=== PATIENT | female | born 1985 | race Caucasian/White ===

== ENCOUNTER → 2017-07-03 18:43 | Outpatient (CLI) | payer OTHER, SELFPAY ==
[2017-07-03 20:45] LABS: Group B Strep DNA By PCR POSITIVE (Negative); Probe Check PASS
== END ==
PROVIDERS: Visit Provider Obstetrics & Gynecology
DX: Z36.85 Encounter for antenatal screening for Streptococcus B (principal)
CPT/HCPCS: 87653

== ENCOUNTER 2017-07-21 08:15 | Inpatient (IN) | payer OTHER, SELFPAY ==
[2017-07-21 07:40] VITALS: BMI 32.1
[2017-07-21 08:08] LABS: ROM Internal Control Test YES-OK TO RESULT pt. (Internal QC)
[2017-07-21 08:09] LABS: ROM Patient Test POSITIVE (Negative)
[2017-07-21 08:59] LABS: Hematocrit 38.3 % (37-47); Mean Corp Hgb Conc 33.9 g/gl (32-36); Mean Corpuscular Hgb 31.1 pg (27.0-32.0); Mean Corpuscular Volume 91.6 fL (81-99); Mean Platelet Vol. 10.2 fl (6.2-12.0); Platelet Count 218 K/mm3 (150-450); RBC Distribution Width CV 13.1 % (11.6-14.6); Red Blood Count 4.18 M/mm3 (4.2-5.4); White Blood Count 9.3 K/mm3 (4.4-11.0)
[2017-07-21] MEDS: Lactated Ringers 1,000 ML 50 ML IV ×4 (09:00→22:10)
[2017-07-21 09:01] LABS: Scan Indicated on CBC? Y/N NO
[2017-07-21] MEDS: Oxytocin 30 units/NS 500 ml 30 UNITS/500 ML IV.SOLN IV (09:58)
[2017-07-21] MEDS: Nalbuphine 10 MG/ML Ampul IV ×2 (12:36→13:09)
--- NOTE | 2017-07-21 16:50 | PCM.PN.BLA ---
Progress Note LABOR PROGRESS NOTE No complaints. Comfortable with epidural. AVSS GEN - NAD, AAO x 3 FHR 140, moderate variability, no accelerations, no decelerations TOCO 5/10 min, MVU 225 SVE 3/75/-1, anterior per last RN exam 2 hours ago. Repeat exam deferred. Pitocin at 7mu/min A/P: 31yo G1 @ 39 2/7wga with SROM in latent labor, pitocin augmentation, Cat I FHR -GBS positive: PCN -Latent labor and ruptured membranes, will repeat exam in approximately 2 hours unless otherwise indicated. - and maternal statuses reassuring -Continue pitocin as tolerated by mother and fetus
--- NOTE | 2017-07-21 17:40 | PCM.PN.BLA ---
Progress Note PROGRESS NOTE FHR 140, moderate variability with series of variable decelerations, TOCO 5/10 min. SVE 4.5/90/0 with ROP, cervix anterior. Patient repositioned. Will continue pitocin as tolerated.
--- NOTE | 2017-07-21 22:03 | PCM.PN.BLA ---
Progress Note LABOR PROGRESS NOTE No complaints. AVSS, Tm 99.6 GEN - NAD< AAO x 3 SVE 8/90/0 per my exam, ROP. TOCO 5/10 min FHR 170, moderate variability, + late deceleration. A/P: 31yo G1 @ 39 2/7wga in active labor, Cat II FHR -Recurrent late decelerations, now with tachycardia, no clinical infection -Pitocin discontinued, bolus administered, Oxygen supplementation administered -Will continue to monitor further without pitocin -If decelerations persist, plan for section
[2017-07-21] MEDS: Ondansetron 4 MG/2 ML Vial IV (22:38)
--- NOTE | 2017-07-21 23:15 | PCM.PN.BLA ---
Progress Note FHR tracing reviewed for last hour, Cat II with presence of late decelerations <50% of contractions and moderate variability maintained. TOCO 4-5/10 min. Discussed with patient and findings. No evidence of acidemia at this time, however, I do not recommend pitocin at this time to avoid exacerbation decelerations. Recommend continue in labor with expectant management, will consider resuming pitocin if strip Cat I in future. Otherwise, will plan for section if no further cervical change at 2am. Discussed maternal risks including pain, bleeding, possible hemorrhage, possible blood transfusion, bowel injury, bladder injury, VTE, infection. Patient and given opportunity to ask questions. Asked about risk for GBS infection, reviewed low risk for GBS given PCN ppx. Questions answered to their satisfaction.
[2017-07-22] VITALS (26 sets, daily range): BP systolic 89–125; BP diastolic 49–75; PULSE 72–103; RESP 12–20; TEMP 36.3–37.8; O2SAT 94–100
--- NOTE | 2017-07-22 00:15 | PCM.PN.BLA ---
Progress Note Tm 100.0, FHR with baseline 165 bpm with occasional late deceleration. Moderate variability maintained. Given prolonged rupture of membranes, increased temperature and tachycardia will given IV Gentamicin for possible subclinical chorioamnionitis. Gentamicin ordered. Continue in labor.
--- NOTE | 2017-07-22 00:58 | PN_ITS ---
Progress Note FHR tracing reviewed for last hour, Cat II with presence of late decelerations < 50% of contractions and moderate variability maintained. TOCO 4-5/10 min. Discussed with patient and findings. No evidence of acidemia at this time, however, I do not recommend pitocin at this time to avoid exacerbation decelerations. Recommend continue in labor with expectant management, will consider resuming pitocin if strip Cat I in future. Otherwise, will plan for section if no further cervical change at 2am. Discussed maternal risks including pain, bleeding, possible hemorrhage, possible blood transfusion, bowel injury, bladder injury, VTE, infection. Patient and given opportunity to ask questions. Asked about risk for GBS infection , reviewed low risk for GBS given PCN ppx. Questions answered to their satisfaction.
--- NOTE | 2017-07-22 03:11 | PCM.PN.BLA ---
Progress Note LABOR PROGRESS NOTE Patient without complaints. Tm/c 100.0, VSS FHR 165, moderate variablity, + variable decelerations, TOCO 4/10 min SVE 8,5/90/0 A/P: 31yo G1 @ 39 3/7wga with arrest of dilation, Cat II FHR -Will proceed with section as planned. Reviewed with patient and how performed. Questions answered to their satisfaction. -Ancef for ppx
[2017-07-22] MEDS: Acetaminophen 325 MG Tablet PO (03:15)
[2017-07-22] MEDS: Sodium Citrate/Citric Acid 30 ML UDC PO (03:27)
[2017-07-22] MEDS: Cefazolin 2 GM in 0.9% Normal Saline 100 ML IV (03:40)
[2017-07-22] MEDS: Oxytocin 30 units/NS 500 ml 30 UNITS/500 ML IV.SOLN 167 UNITS IV (03:56)
[2017-07-22] MEDS: Ketorolac 30 MG/ML Syringe IV ×4 (04:00→23:16)
--- NOTE | 2017-07-22 04:37 | PCM.IMED.CSR ---
- Problem List (1) delivery delivered Status: Acute (2) 39 weeks gestation of Status: Acute X-Aboitji-Ycqhftxmv PostOp Date of Procedure: 07/22/17 Primary Surgeon/Physician: Licha Contreras, fixed route bus operator: Bruce Moctezuma Pre-op Diagnosis: Sec. Arrest of Dilitation Post-Op Diagnosis: Sec. Arrest of Dilitation Surgery/Procedure Performed: Primary low transverse Section Description of Surgical Findings:: Normal tubes MALE INFANT, 3885g Estimated Blood Loss: 500 mL Specimens Removed: placenta Drain: [place] to straight drain Type of Anesthesia: Epidural - Admit VTE Documentation VTE Present on Admission: No VTE Mechan Device Prophylaxis: SCD's VTE Pharm Prophylaxis ordered?: No
--- NOTE | 2017-07-22 04:40 | OP.PN_ITS ---
- Problem List (1) delivery delivered Status: Acute (2) 39 weeks gestation of Status: Acute M-Phssghc-Qkxsonpce PostOp Date of Procedure: 07/22/17 Primary Surgeon/Physician: Licha Contreras, head of history: Bruce Moctezuma Pre-op Diagnosis: Sec. Arrest of Dilitation Post-Op Diagnosis: Sec. Arrest of Dilitation Surgery/Procedure Performed: Primary low transverse Section Description of Surgical Findings:: Normal tubes MALE INFANT, 3885g Estimated Blood Loss: 500 mL Specimens Removed: placenta Drain: [place] to straight drain Type of Anesthesia: Epidural - Admit VTE Documentation VTE Present on Admission: No VTE Mechan Device Prophylaxis: SCD's VTE Pharm Prophylaxis ordered?: No
--- NOTE | 2017-07-22 04:40 | PCM.OB.CSR ---
- Problem List (1) delivery delivered Status: Acute (2) 39 weeks gestation of Status: Acute Delivery Classification: TONI Final NENO: 07/26/17 Gestational age: 39 Weeks and 3 Days [place] doctor who attended delivery (if requested by OB): Rona Christianson Indications: 31yo G1 admitted with SROM. She had pitocin augmentation and progressed from 1cm to 8.5cm. Pitocin was discontinued due to recurrent late decelerations with some improvement. She continued to labor spontaneously with improved Cat II FHR however no further cervical progression over 6 hours. She was given antibiotics prophylaxis for GBS and subsequently received Gentamicin x 1 shortly before delivery for increasing maternal temperature curve, maternal and tachycardia. Indications for : Sec. Arrest of Dilitation Description of Procedure: The patient was taken to the operating room and spinal analgesia was administered. She is placed in a dorsal supine position with left lateral tilt. The perineum and abdomen were prepped and draped in sterile fashion. And the spinal was found to be adequate. A Pfannenstiel incision was made using a scalpel and brought down to incise the subcutaneous tissue and rectus fascia at the midline. Subcutaneous tissue was bluntly dissected off the fascia laterally. The fascial incision was dissected laterally and cephalad using curved Contreras scissors. The superior leaflet of the rectus fascia was grasped using Monik clamps and bluntly dissected and sharply dissected from the underlying rectus muscle. In a similar fashion the inferior rectus fascia was dissected from the underlying muscle. The rectus muscles were bluntly at the midline. The peritoneum was identified and entered [sharply]. The bladder blade was placed into the abdomen and the vesicouterine peritoneal fold identified. The fold was incised and a bladder flap created. Bladder blade was then repositioned to the abdomen. A low transverse hysterotomy was made using the [Metzenbaum scissors] to level of the membranes. The hysterotomy was extended bluntly cephalad and caudad. The membranes were then ruptured revealing clear fluid. The head was elevated and brought to the level of the hysterotomy and the infant delivered revealing vigorous [male] . The cord was doubly clamped and cut after 30 seconds. The was passed to awaiting [nursery personnel]. The placenta was [expressed] from the uterus and appeared intact on inspection. The uterus was cleared of debris. The hysterotomy was then repaired using 0 Vicryl running lock suture. A second imbricating layer was also placed for additional hemostasis. The bladder blade was removed. The anterior cul-de-sac was cleared of debris. The peritoneum and rectus muscles were reapproximated using 2-0 Vicryl running suture. The rectus fascia was closed using 0 Vicryl running suture. The subcutaneous tissue was sponge irrigated and small capillary bleeding controlled using the Bovie device. The subcutaneous tissue was reapproximated using 2-0 Vicryl. The skin was closed using 4-0 Monocryl subcuticularly by the GIRL FRIDAY under my supervision. This was followed by Tad and a Mepilex occlusive dressing was placed over the incision. The fundus was firm. The patient was then transferred to the recovery room without complication. Sponge, instrument, and needle counts were correct ?2. MALE 3885g Amniotic Membrane Rupture Type: Artificial Amniotic Fluid Description: Moderate meconium Placenta Disposition: [facility] Specimen(s) sent to pathology: placenta Drain: [place] to straight drain Fluids Replaced: 1700 mL Cord Entanglement: Around neck x 1, loose Nuchal Cord Compression: Without compression Cord Vessel Description: 3 Vessels Esitmated Blood Loss (ml): 500 Infant Gender: Male (1 minute): 8 (5 minute): 9 Delayed cord clamping: No Pre-op Antibiotic Given: Ancef 2 grams IV x1 Pt instructed on risks of surgery: Bleeding, Anesthesia Risks, Infection, Injury to surrounding structure(s) including bowel and bladder Complications: None
--- NOTE | 2017-07-22 04:50 | OP.PCM_ITS ---
- Problem List (1) delivery delivered Status: Acute (2) 39 weeks gestation of Status: Acute Delivery Classification: TONI Final NENO: 07/26/17 Gestational age: 39 Weeks and 3 Days [place] doctor who attended delivery (if requested by OB): Rona Christianson Indications: 31yo G1 admitted with SROM. She had pitocin augmentation and progressed from 1cm to 8.5cm. Pitocin was discontinued due to recurrent late decelerations with some improvement. She continued to labor spontaneously with improved Cat II FHR however no further cervical progression over 6 hours. She was given antibiotics prophylaxis for GBS and subsequently received Gentamicin x 1 shortly before delivery for increasing maternal temperature curve, maternal and tachycardia. Indications for : Sec. Arrest of Dilitation Description of Procedure: The patient was taken to the operating room and spinal analgesia was administered. She is placed in a dorsal supine position with left lateral tilt. The perineum and abdomen were prepped and draped in sterile fashion. And the spinal was found to be adequate. A Pfannenstiel incision was made using a scalpel and brought down to incise the subcutaneous tissue and rectus fascia at the midline. Subcutaneous tissue was bluntly dissected off the fascia laterally. The fascial incision was dissected laterally and cephalad using curved Contreras scissors. The superior leaflet of the rectus fascia was grasped using Monik clamps and bluntly dissected and sharply dissected from the underlying rectus muscle. In a similar fashion the inferior rectus fascia was dissected from the underlying muscle. The rectus muscles were bluntly at the midline. The peritoneum was identified and entered [sharply]. The bladder blade was placed into the abdomen and the vesicouterine peritoneal fold identified. The fold was incised and a bladder flap created. Bladder blade was then repositioned to the abdomen. A low transverse hysterotomy was made using the [Metzenbaum scissors] to level of the membranes. The hysterotomy was extended bluntly cephalad and caudad. The membranes were then ruptured revealing clear fluid. The head was elevated and brought to the level of the hysterotomy and the infant delivered revealing vigorous [ male] infant. The cord was doubly clamped and cut after 30 seconds. The was passed to awaiting [nursery personnel]. The placenta was [expressed ] from the uterus and appeared intact on inspection. The uterus was cleared of debris. The hysterotomy was then repaired using 0 Vicryl running lock suture. A second imbricating layer was also placed for additional hemostasis. The bladder blade was removed. The anterior cul-de-sac was cleared of debris. The peritoneum and rectus muscles were reapproximated using 2-0 Vicryl running suture. The rectus fascia was closed using 0 Vicryl running suture. The subcutaneous tissue was sponge irrigated and small capillary bleeding controlled using the Bovie device. The subcutaneous tissue was reapproximated using 2-0 Vicryl. The skin was closed using 4-0 Monocryl subcuticularly by the PORT TRAFFIC MANAGER under my supervision. This was followed by Tad and a Mepilex occlusive dressing was placed over the incision. The fundus was firm. The patient was then transferred to the recovery room without complication. Sponge, instrument, and needle counts were correct ?2. MALE INFANT 3885g Amniotic Membrane Rupture Type: Artificial Amniotic Fluid Description: Moderate meconium Placenta Disposition: [facility] Specimen(s) sent to pathology: placenta Drain: [place] to straight drain Fluids Replaced: 1700 mL Cord Entanglement: Around neck x 1, loose Nuchal Cord Compression: Without compression Cord Vessel Description: 3 Vessels Esitmated Blood Loss (ml): 500 Gender: Male (1 minute): 8 (5 minute): 9 Delayed cord clamping: No Pre-op Antibiotic Given: Ancef 2 grams IV x1 Pt instructed on risks of surgery: Bleeding, Anesthesia Risks, Infection, Injury to surrounding structure(s) including bowel and bladder Complications: None
--- NOTE | 2017-07-22 05:23 | PCM.DC.SUM ---
Discharge Date and Diagnosis Date of Admission: 07/21/17 Date of Discharge: 07/25/17 - Primary Discharge Diagnosis Active and Suspected Problems delivery delivered (Acute) 39 weeks gestation of (Acute) Hospital Course and Treatment Consultations 07/21/17 08:41 Consult: Anesthesia Routine Comment: Reason For Exam: LABOR Operations: - - section Summary of Care Provided: The patient is a 31 year old F 1 admitted with SROM in labor. She underwent section at 39 3/7wga for arrest of dilation, fetus occiput posterior. Her procedure was uncomplicated. Her postoperative course was unremarkable as she was discharged to home on postop day#3. Home Medications: Medications to take at Discharge Calcium Carbonate [Tums] 200 mg PO PRN PRN 07/21/17 Doxylamine Succinate [Unisom Sleep Aid] 25 mg PO PRN PRN 07/21/17 Vits [Prenatabs FA] 1 tablet PO DAILY 07/21/17 Docusate Sodium [Colace] 100 mg PO BID PRN PRN #60 cap 07/22/17 Ibuprofen 800 mg PO TID PRN #30 tab 07/22/17 Oxycodone [Oxyir] 1 - 2 tab PO Q4H PRN PRN 3 Days #28 tablet 07/22/17 Following Prescrptions Were Given to Patient: Oxycodone [Oxyir] 1 - 2 tab PO Q4H PRN PRN 3 Days #28 tablet PRN Reason: Pain Docusate Sodium [Colace] 100 mg PO BID PRN PRN #60 cap PRN Reason: Constipation Ibuprofen 800 mg PO TID PRN #30 tab PRN Reason: Pain Other Amb Orders: Electric breast pump Location: None Selected Primary Care Physician: Care Physician,No Primary [Primary Care Provider] - Meaningful Use Info Meaningful Use Diagnoses (Choose all that apply): None applicable
--- NOTE | 2017-07-22 05:27 | PLAC_PTH ---
PATIENT: WILL MCCLAIN LOC: [facility] U#:[id number] AGE/SX: 31/F ROOM: WP008 RE07/21/[address]: Dr. Licha Nogueira MD : 1985 BED: 1 DIS: 07/25/2017 SPEC #: [id number] RECD: 07/22/17 06:23 STATUS: JOSE REAngy #: [id number] IGNACIA: 07/22/17 05:[address]: Licha Salomon DEPT: SURGICAL PATHOLOGY RECD BY: Mary Jaramillo ENTERED: 07/23/17 09:12 SP TYPE: PLACENTA OTHR DR: No Primary Care Phys Tissues: Placenta, NOS Procedures: Surgery Specimen Level V HEADER OPERATION: Primary section PRE-OP DIAGNOSIS: Prolonged rupture of membranes, arrest of dilation TISSUE SUBMITTED: Placenta MICROSCOPIC DIAGNOSIS Placenta: Placental disc - third trimester placenta (542 gm). Mild acute vasculitis of subamniotic blood vessels. Membranes ? acute chorioamnionitis. Umbilical cord - three blood vessels and moderate acute funisitis. SJ:paolo 07/24/17 MICROSCOPIC DESCRIPTION Slides are reviewed. GROSS DESCRIPTION SPECIMEN: PLACENTA / CLINICAL INFORMATION: A. Weight: 3.598 kg B. Gestational Age: 39 weeks C. Sex: Male PLACENTAL WEIGHT (POST FIXATION): 542 gm PLACENTAL DIMENSIONS: 17 x 16 x 2.5 cm PLACENTAL SHAPE: Usual ovoid PLACENTAL WEIGHT FOR GESTATIONAL AGE: Within 10-99th percentile MEMBRANES - Present A. Insertion: Marginal B. Site of rupture from edge: At edge of placental disc C. Color of membrane: Mtz-morataya D. Abnormalities: None UMBILICAL CORD - Present A. Color: Mtz-morataya B. Insertion: Slightly eccentric C. Length: 57 cm D. Diameter: 1.2 cm E. Number of vessels: Three F. Abnormalities: None PLACENTAL DISC - Present A. Color of surface: Mtz-morataya B. surface abnormalities: None C. Maternal cotyledons: Intact with minimal tears D. Attached retro placental clot: No clot E. Cut surface: Dark red and spongy F. Lesions: None G. Separate clot: Absent SECTIONS SUBMITTED: 1. Membrane roll and umbilical cord ( end notched) 2. Placental disc, and maternal surfaces 3. Placental disc, and maternal surfaces 4. Placental disc, and maternal surfaces AM:paolo 07/23/17 TC:2 CPT: 84927
--- NOTE | 2017-07-22 05:28 | PCM.DCCSEC ---
Discharge Diet: No Restrictions Discharge Activity: Return to Normal Activity, May not drive while taking narcotic pain medications., May Shower May resume sexual activity in: 6 weeks Lifting Restrictions: 10 lb Additional Activity Instructions:: You may return to work/school in 6-8 weeks. Call your doctor if your incision/area has: Continuous Slow Oozing, Sudden Increased Bleeding, Increased Pain/ Swelling, Increased Redness, Foul Smelling Discharge Call your doctor if you observe: Fever of 101 or Higher, Inability to urinate, Inability to have a bowel movement, Using more than one pad per hour, Shortness of breath, Chest pain, Calf discomfort, Uncontrolled pain Suture Line Care: Avoid Pulling/Pushing Cleanse incision/area with: Soap & Water Additional Instructions: If you experience any of the following, contact your healthcare provider. Bleeding that soaks a pad every hour for 2 hours Fever 100.4 or higher Unrelieved incision or abdominal pain Swelling, redness, discharge or bleeding from your incision or episiotomy site Your incision begins to separate Problems urinating (including inability to urinate or burning while urinating). Visual changes Severe headache Flu-like symptoms Pain or redness in one of both of your breasts Pain, warmth, tenderness or swelling in your legs, especially the calf area Frequent nausea and vomiting Symptoms of depression or anxiety If you experience any of the following, call 911 or go to the nearest Emergency Room. Chest pain Problems breathing Seizure activity Partial or complete paralysis of a body part, slurred speech, weakness or drooping of the face, or a sudden inability to walk or hold your balance Allergies/Adverse Reactions: Allergies No Known Allergies Allergy (Verified 07/21/17 07:40) Medications to take at Discharge Calcium Carbonate [Tums] 200 mg PO PRN PRN 07/21/17 Doxylamine Succinate [Unisom Sleep Aid] 25 mg PO PRN PRN 07/21/17 Vits [Prenatabs FA] 1 tablet PO DAILY 07/21/17 Docusate Sodium [Colace] 100 mg PO BID PRN PRN #60 cap 07/22/17 Ibuprofen 800 mg PO TID PRN #30 tab 07/22/17 Oxycodone [Oxyir] 1 - 2 tab PO Q4H PRN PRN 3 Days #28 tablet 07/22/17 The following prescriptions were given: Oxycodone [Oxyir] 1 - 2 tab PO Q4H PRN PRN 3 Days #28 tablet PRN Reason: Pain Docusate Sodium [Colace] 100 mg PO BID PRN PRN #60 cap PRN Reason: Constipation Ibuprofen 800 mg PO TID PRN #30 tab PRN Reason: Pain Orders to be completed after discharge: Electric breast pump Location: None Selected Follow-Up: Call to make an appointment with your doctor for an incision check in 1-2 weeks. You will also need a 6 week post- follow up appointment. Please Follow Up With: Roseann Waldrop MD When: 1-2 weeks and 6 weeks Primary Care Physician: Care Physician,No Primary [Primary Care Provider] -
--- NOTE | 2017-07-22 05:31 | DCINST_ITS ---
Discharge Diet: No Restrictions Discharge Activity: Return to Normal Activity, May not drive while taking narcotic pain medications., May Shower May resume sexual activity in: 6 weeks Lifting Restrictions: 10 lb Additional Activity Instructions:: You may return to work/school in 6-8 weeks. Call your doctor if your incision/area has: Continuous Slow Oozing, Sudden Increased Bleeding, Increased Pain/ Swelling, Increased Redness, Foul Smelling Discharge Call your doctor if you observe: Fever of 101 or Higher, Inability to urinate, Inability to have a bowel movement, Using more than one pad per hour, Shortness of breath, Chest pain, Calf discomfort, Uncontrolled pain Suture Line Care: Avoid Pulling/Pushing Cleanse incision/area with: Soap & Water Additional Instructions: If you experience any of the following, contact your healthcare provider. * Bleeding that soaks a pad every hour for 2 hours * Fever 100.4 or higher * Unrelieved incision or abdominal pain * Swelling, redness, discharge or bleeding from your incision or episiotomy site * Your incision begins to separate * Problems urinating (including inability to urinate or burning while urinating) . * Visual changes * Severe headache * Flu-like symptoms * Pain or redness in one of both of your breasts * Pain, warmth, tenderness or swelling in your legs, especially the calf area * Frequent nausea and vomiting * Symptoms of depression or anxiety If you experience any of the following, call 911 or go to the nearest Emergency Room. * Chest pain * Problems breathing * Seizure activity * Partial or complete paralysis of a body part, slurred speech, weakness or drooping of the face, or a sudden inability to walk or hold your balance Allergies/Adverse Reactions: Allergies No Known Allergies Allergy (Verified 07/21/17 07:40) Medications to take at Discharge Calcium Carbonate [Tums] 200 mg PO PRN PRN 07/21/17 Doxylamine Succinate [Unisom Sleep Aid] 25 mg PO PRN PRN 07/21/17 Vits [Prenatabs FA] 1 tablet PO DAILY 07/21/17 Docusate Sodium [Colace] 100 mg PO BID PRN PRN #60 cap 07/22/17 Ibuprofen 800 mg PO TID PRN #30 tab 07/22/17 Oxycodone [Oxyir] 1 - 2 tab PO Q4H PRN PRN 3 Days #28 tablet 07/22/17 The following prescriptions were given: Oxycodone [Oxyir] 1 - 2 tab PO Q4H PRN PRN 3 Days #28 tablet PRN Reason: Pain Docusate Sodium [Colace] 100 mg PO BID PRN PRN #60 cap PRN Reason: Constipation Ibuprofen 800 mg PO TID PRN #30 tab PRN Reason: Pain Orders to be completed after discharge: Electric breast pump Location: None Selected Follow-Up: Call to make an appointment with your doctor for an incision check in 1-2 weeks. You will also need a 6 week post- follow up appointment. Please Follow Up With: Roseann Waldrop MD When: 1-2 weeks and 6 weeks Primary Care Physician: Care Physician,No Primary [Primary Care Provider] -
[2017-07-22] MEDS: Lactated Ringers 1,000 ML 100 ML IV ×2 (08:02→18:17)
[2017-07-22] MEDS: Prenatal Vits Tablet 1 TABLET PO (10:09)
--- NOTE | 2017-07-22 14:44 | NURSING ---
Pt's pulse ox remains good on room air while awake - drops to 90-92% at intervals while resting. O2 applied per NC while resting.
--- NOTE | 2017-07-22 18:30 | NURSING ---
Znia-care completed. Pt. up out of bed without much assist, ambulated around room, then to rocking chair. to arms, will attempt to feed.
[2017-07-23] VITALS: PULSE 70; RESP 15; RESP 17; TEMP 37.2; O2SAT 95
[2017-07-23 02:00] VITALS: PULSE 78; RESP 17; O2SAT 97
[2017-07-23 04:00] VITALS: BP 112/70; PULSE 93; RESP 15
[2017-07-23] MEDS: Ibuprofen 600 MG Tablet PO ×3 (05:52→18:46)
[2017-07-23 06:08] LABS: Hemoglobin 11.6 g/dl (12.0-15.0); Mean Corp Hgb Conc 33.1 g/gl (32-36); Mean Corpuscular Hgb 30.9 pg (27.0-32.0); Mean Corpuscular Volume 93.3 fL (81-99); Mean Platelet Vol. 9.4 fl (6.2-12.0); Platelet Count 182 K/mm3 (150-450); RBC Distribution Width CV 13.5 % (11.6-14.6); RBC Distribution Width SD 44.1 fl (35.1-43.9); Red Blood Count 3.75 M/mm3 (4.2-5.4); White Blood Count 16.5 K/mm3 (4.4-11.0)
[2017-07-23 06:17] LABS: Scan Indicated on CBC? Y/N NO
[2017-07-23 07:30] VITALS: BP 116/59; PULSE 78; RESP 16; TEMP 36.1; O2SAT 98
[2017-07-23] MEDS: Senna/Docusate Sodium 1 Tablet PO (08:07)
--- NOTE | 2017-07-23 08:10 | PCM.PN.OB ---
Patient Problems: Active and Suspected Problems delivery delivered (Acute) 39 weeks gestation of (Acute) Subjective: Pain is minimal. She has been out of bed, passing flatus. Voided without significant difficulty. She is nursing her . No complaints today. Objective: AVSS - Physical Exam General: Alert, Oriented x3, Cooperative, No apparent distress HEENT: Atraumatic, Normocephalic Lungs: Clear to auscultation, Normal air movement Cardiovascular: Regular rate, Regular Rhythm, Normal S1, Normal S2 Abdomen: Soft, Non Tender, Non-Distended, Hypoactive Bowel Sounds, - - Fundus firm and nontender, lochia scant, incisional dressing c/d/i Extremities: No edema, No Calf Tenderness Neurological: Neuro grossly intact Psych/Mental Status: Normal Affect, Appropriate, Alert and oriented to time, place, person, mood and affect Vital Signs Temp Pulse Resp BP Pulse Ox 97.0 F L 78 16 116/59 L 98 07/23/17 07:30 07/23/17 07:30 07/23/17 07:30 07/23/17 07:30 07/23/17 07:30 Oxygen Flow Rate (L/min) 2 Oxygen Delivery Method Room Air Weight: 90.2 kg Body Mass Index (BMI) 32.1 Intake and Output for Last 24 Hours 07/21/17 07/22/17 07/23/17 22:59 23:59 23:59 Intake Total 1600 / 1600 Output Total 1950 / 1950 Balance -350 / -350 Laboratory Tests Past 24 Hrs 07/23/17 05:50 WBC 16.5 H RBC 3.75 L Hgb 11.6 L Hct 35.0 L MCV 93.3 MCH 30.9 MCHC 33.1 RDW 13.5 RDW Differential 44.1 H Plt Count 182 MPV 9.4 Assessment/Plan Active and Suspected Problems delivery delivered (Acute) 39 weeks gestation of (Acute) 31yo POD#1 s/p PLTCS doing well. -Rubella immune, O positive -Routine postop care -
[2017-07-23] MEDS: Prenatal Vits Tablet 1 TABLET PO (12:49)
[2017-07-23 14:00] VITALS: BP 104/68; PULSE 105; RESP 20; TEMP 36.6; O2SAT 96
[2017-07-23 20:00] VITALS: BP 116/68; PULSE 91; RESP 16; TEMP 37.4; O2SAT 97
[2017-07-24 02:30] VITALS: BP 117/65; PULSE 85; RESP 16; TEMP 37; O2SAT 98
[2017-07-24] MEDS: Ibuprofen 600 MG Tablet PO ×4 (02:51→23:55)
[2017-07-24 08:00] VITALS: BP 107/68; PULSE 74; RESP 16; TEMP 36.8
--- NOTE | 2017-07-24 08:05 | PCM.PN.OB ---
Patient Problems: Active and Suspected Problems delivery delivered (Acute) 39 weeks gestation of (Acute) Subjective: No issues overnight. She has passed flatus and had two bowel movements. is improved. Her pain is minimal. Objective: AVSS - Physical Exam General: Alert, Oriented x3, Cooperative, No apparent distress HEENT: Atraumatic, Normocephalic Lungs: Clear to auscultation, Normal air movement Cardiovascular: Regular rate, Regular Rhythm, Normal S1, Normal S2 Abdomen: Bowel Sounds Present, Soft, Non Tender, Non-Distended, - - Fundus firm and nontender at umbilicus, incisional dressing c/d/i Extremities: No edema, No Calf Tenderness Neurological: Neuro grossly intact Psych/Mental Status: Normal Affect, Appropriate, Alert and oriented to time, place, person, mood and affect Vital Signs Temp Pulse Resp BP Pulse Ox 98.2 F 74 16 107/68 98 07/24/17 08:00 07/24/17 08:00 07/24/17 08:00 07/24/17 08:00 07/24/17 02:30 Oxygen Flow Rate (L/min) 2 Oxygen Delivery Method Room Air Weight: 90.2 kg Body Mass Index (BMI) 32.1 Intake and Output for Last 24 Hours 07/22/17 07/23/17 07/24/17 23:59 23:59 23:59 Intake Total 3200 / 3200 Output Total 4300 / 4300 Balance -1100 / -1100 Assessment/Plan Active and Suspected Problems delivery delivered (Acute) 39 weeks gestation of (Acute) 31yo POD#2 s/p PLTCS doing well. -Rubella immune, O positive -Routine postop care -
[2017-07-24] MEDS: Senna/Docusate Sodium 1 Tablet PO (09:15)
[2017-07-24] MEDS: Prenatal Vits Tablet 1 TABLET PO (09:15)
[2017-07-24 14:00] VITALS: BP 121/70; PULSE 82; RESP 16; TEMP 36.4
[2017-07-24 16:52] LABS: Pathology Specimen OB SEE PATHOLOGY REPORT
[2017-07-24 20:15] VITALS: BP 114/63; PULSE 88; RESP 16; TEMP 37; O2SAT 97
[2017-07-25 02:00] VITALS: BP 104/61; PULSE 61; RESP 16; TEMP 37; O2SAT 98
[2017-07-25] MEDS: Ibuprofen 600 MG Tablet PO (06:13)
--- NOTE | 2017-07-25 08:27 | PCM.PN.OB ---
Patient Problems: Active and Suspected Problems delivery delivered (Acute) 39 weeks gestation of (Acute) Subjective: No issues overnight. Her milk is coming in. Pain is well controlled. Objective: AVSS - Physical Exam General: Alert, Oriented x3, Cooperative, No apparent distress HEENT: Atraumatic, Normocephalic Lungs: Clear to auscultation, Normal air movement Cardiovascular: Regular rate, Regular Rhythm, Normal S1, Normal S2 Abdomen: Soft, Non Tender, Non-Distended, - - Fundus firm and nontender, incision c/d/i - dressing removed, sharmaine-incisional ecchymosis present Extremities: No edema, No Calf Tenderness Neurological: Neuro grossly intact Psych/Mental Status: Normal Affect, Appropriate, Alert and oriented to time, place, person, mood and affect Vital Signs Temp Pulse Resp BP Pulse Ox 98.6 F 61 16 104/61 98 07/25/17 02:00 07/25/17 02:00 07/25/17 02:00 07/25/17 02:00 07/25/17 02:00 Oxygen Flow Rate (L/min) 2 Oxygen Delivery Method Room Air Weight: 90.2 kg Body Mass Index (BMI) 32.1 Intake and Output for Last 24 Hours 07/23/17 07/24/17 07/25/17 23:59 23:59 23:59 Intake Total 3200 / 3200 Output Total 4300 / 4300 Balance -1100 / -1100 Assessment/Plan Active and Suspected Problems delivery delivered (Acute) 39 weeks gestation of (Acute) 31yo POD#3 s/p PLTCS doing well. -Rubella immune, O positive -Routine postop care - -d/c home today
[2017-07-25] MEDS: Prenatal Vits Tablet 1 TABLET PO (08:43)
[2017-07-25] MEDS: Senna/Docusate Sodium 1 Tablet PO (08:43)
[2017-07-25 09:00] VITALS: BP 101/70; PULSE 80; RESP 16; TEMP 36.9; O2SAT 96
== END 2017-07-25 13:00 | disposition home or self-care (01) | DRG 765 ==
LOC: WPOUT 08:22
PROVIDERS: Admitting Provider Obstetrics & Gynecology; Visit Provider Obstetrics & Gynecology
DX: O62.1 Secondary uterine inertia (principal); O41.1230 Chorioamnionitis, third trimester, not applicable or unspecified; O75.2 Pyrexia during labor, not elsewhere classified; O76 Abnormality in fetal heart rate and rhythm complicating labor and delivery; O42.02 Full-term premature rupture of membranes, onset of labor within 24 hours of rupture; O32.8XX0 Maternal care for other malpresentation of fetus, not applicable or unspecified; O77.0 Labor and delivery complicated by meconium in amniotic fluid; O69.81X0 Labor and delivery complicated by cord around neck, without compression, not applicable or unspecified; O99.820 Streptococcus B carrier state complicating pregnancy; O99.89 Other specified diseases and conditions complicating pregnancy, childbirth and the puerperium; R00.0 Tachycardia, unspecified; Z37.0 Single live birth; Z3A.39 39 weeks gestation of pregnancy
CPT/HCPCS: 59025; 59050; 84112; 85027; 86850; 86900; 88307; 99218; J7120; G0378; J2405

== ENCOUNTER 2017-07-27 11:20 | Outpatient (CLI) | payer OTHER, SELFPAY | END 2017-07-27 12:20 | disposition home or self-care (01) | LOC: WPOUT 11:30 → WP 11:31 | PROVIDERS: Visit Provider Obstetrics & Gynecology | DX: Z39.1 Encounter for care and examination of lactating mother (principal) | CPT/HCPCS: 96152 ==

== ENCOUNTER 2017-08-17 16:36 | Emergency (ER) | payer OTHER, SELFPAY ==
[2017-08-17 16:38] VITALS: BP 134/82; PULSE 99; RESP 16; TEMP 36.8; O2SAT 99; BMI 27.6
--- NOTE | 2017-08-17 16:47 | ED.DCSUM_ITS ---
- ER Visit Summary Date of Service: 08/17/17 Chief Complaint: Right breast abscess History of Present Illness: The patient is a 32 F who delivered July [address] Waldrop office because of a right breast abscess. She does complain of chills. She denied fever. She reports she felt a lump on Sunday. The breast was read and swollen on Sunday. She was prescribed dicloxacillin. There is no history rheumatic fever, mitral valve prolapse, heart murmur, SPE or being immune suppressed. She does complain of right breast pain. She denies chest pain or shortness of breath. She denies any GI symptoms. She denies any antibiotic allergies. Physical Examination: Vital signs are remarkable for an elevated blood pressure of 134/82. HEENT exam is unremarkable. Heart is regular without murmur, gallop or rub. Lungs are clear to auscultation. The right breast is engorged in comparison to the left. There is surrounding cellulitis of approximately 5 cm diameter. There is a palpable fluctuant mass consistent with an abscess. Test Results: None Emergency Department Course and Treatment: Patient and were told that the abscess will require drainage. They were informed what that entailed. The right breast was prepped and draped sterile manner. The area was anesthetized by local infiltration. Total of 6 cc of 1% lidocaine was infiltrated. Incision was made. There was minimal drainage. Blunt dissection was undertaken and significant yellow thick purulent fluid drained. Additional purulent material was expressed from the abscess cavity. A wick was placed. Bactrim was added to patient's antibiotic regimen for MRSA coverage since dicloxacillin has good strep and methicillin sensitive staph coverage. Treatment Plan: Appropriate home-going instructions and reevaluation in [address] Waldrop Disposition: Discharged home with appropriate home-going instructions Impression: 1. Right breast abscess with cellulitis 2. Incision and drainage of right breast abscess This note was generated with [employer] dictation software. It may contain incorrect words, spelling, and punctuation that were not noted in review of the chart prior to signing ED Disposition - Plan for ED Patient: Disposition: Home or Assisted Living Chief Complaint: Abscess Instructions: ED Abscess IandD, ED Infec Skin Cellulitis Prescriptions: Hydrocodone/Acetaminophen [[place] 5-325 Tablet] 1 ea PO Q4H PRN PRN 2 Days #10 tab PRN Reason: Right breast pain Smz/Tmp Ds [Bactrim Ds] 1 tab PO BID #14 tab Referrals: Care Physician,No Primary [Primary Care Provider] - Roseann Waldrop MD [STAFF PHYSICIAN] - 08/20/17 Additional Instructions: Wound check and removal of wick on Sunday
[2017-08-17 17:25] VITALS: PULSE 72; RESP 16; O2SAT 100
== END 2017-08-17 17:26 | disposition home or self-care (01) ==
PROVIDERS: Emergency Provider Emergency Medicine
DX: N61.1 Abscess of the breast and nipple (principal)
CPT/HCPCS: 10061; 10060; 99283

== ENCOUNTER → 2019-12-24 11:39 | Outpatient (CLI) | payer OTHER, SELFPAY ==
[2019-12-24 11:02] VITALS: BMI 27.6
[2019-12-24 12:32] LABS: T4 Free Direct 1.09 ng/dL (0.76-1.46); Thyroid Stim Hormone (TSH) 0.75 uIU/mL (0.358-3.74)
== END ==
PROVIDERS: Referring Provider Obstetrics & Gynecology; Visit Provider Obstetrics & Gynecology
DX: E01.0 Iodine-deficiency related diffuse (endemic) goiter (principal); N81.4 Uterovaginal prolapse, unspecified
CPT/HCPCS: 36415; 84439; 84443; 87077; 87086; 87088

== ENCOUNTER → 2020-01-22 09:27 | Outpatient (CLI) | payer OTHER, SELFPAY ==
[2019-12-24 11:02] VITALS: BMI 27.6
--- NOTE | 2020-01-22 09:28 | US_ITS ---
STUDY: THYROID ULTRASOUND REASON FOR EXAM: Female, 34 years old. THYROMEGALY TECHNIQUE: Ultrasound evaluation of the thyroid was performed with real-time and static morataya-scale imaging. COMPARISON: None. FINDINGS: RIGHT LOBE: The right lobe of the thyroid gland is enlarged and measures 5.6 cm x 2.1 cm x 1.6 cm. There is a heterogeneous echotexture. Multiple cystic and complex cystic nodules seen scattered throughout the right lobe. The largest measures 1.2 cm x 1.1 cm x 0.6 cm. This is in the lower pole. LEFT LOBE: The left lobe of the thyroid gland is enlarged and measures 5.2 cm x 1.8cm x 1.5 cm. There is a heterogeneous echotexture. Multiple complex cystic nodules are seen. The largest measures 1.3 cm x 1.2 cm x 0.8 cm. This is in the lower pole. ISTHMUS: The isthmus measures 2.0 mm. The regional lymph nodes are normal. US/Thyroid IMPRESSION: Multiple bilateral cystic and complex cystic nodules seen throughout both lobes. Biopsy of the dominant nodules should be considered. Thyromegaly. Electronically Signed: Faraz Montiel, at 14:55 EDT , Service support ,
== END ==
PROVIDERS: Referring Provider Obstetrics & Gynecology; Visit Provider Obstetrics & Gynecology
DX: E01.0 Iodine-deficiency related diffuse (endemic) goiter (principal)
CPT/HCPCS: 76536

== ENCOUNTER → 2020-03-04 | Outpatient (CLI) | payer OTHER, SELFPAY ==
--- NOTE | 2020-03-03 14:00 | FLU_PTH ---
PATIENT: WILL MCCLAIN [facility] U#:[id number] AGE/SX: 34/F ROOM: RE03/04/[address]: Dr. Augusto Lindsey MD : 1985 BED: DIS: 03/04/2020 SPEC #: [id number] RECD: 03/03/20 16:40 STATUS: JOSE ANDRÉS #: [id number] IGNACIA: 03/03/20 14:[address]: Augusto Lindsey DEPT: CYTOLOGY RECD BY: Tatianna Thorne ENTERED: 03/04/20 07:57 SP TYPE: Fluid OTHR DR: No Primary Care Phys Tissues: A - Thyroid gland, NOS B - Thyroid gland, NOS C - Thyroid gland, NOS Procedures: Special Stain Group II Surgery Specimen Level IV Cytospin Fluid HEADER OPERATION: Bilateral thyroid fine needle aspiration PRE-OP DIAGNOSIS: Bilateral thyroid nodules TISSUE SUBMITTED: A - Left thyroid fluid for cytology, B - Right thyroid nodule slides x7, C - Left thyroid nodule slides x4 DIAGNOSIS CYTOLOGY A. Left thyroid nodule, fluid for cytology, FNA (cytospin and cell block): Consistent with benign colloid nodule with cystic change. B. Right thyroid nodule, FNA (smears): Consistent with benign follicular/colloid nodule. Adequate for evaluation. C. Left thyroid nodule, FNA (smears): Consistent with benign follicular/colloid nodule with cystic change. Adequate for evaluation. LISA:paolo 03/05/20 COMMENT Correlation with clinical, radiologic findings and appropriate follow up are necessary. CYTOLOGY STUDY Slides are reviewed. CYTOLOGY GROSS A - Received is 2 ml of dark brown cloudy fluid labeled with the patient's name and and designated per the requisition as left thyroid. Submitted for cytology preparation including cell block. B - Received are seven smears labeled with the patient's name and designated per the requisition as right thyroid. Submitted for staining. C - Received are four smears labeled with the patient's name and designated per the requisition as left thyroid. Submitted for staining. / paolo 03/04/20 TC:5 CPT: 51163, 89627 x2, 20819
== END | disposition home or self-care (01) ==
LOC: LABSPEC 07:03
PROVIDERS: Referring Provider Surgery; Visit Provider Surgery
DX: E04.2 Nontoxic multinodular goiter (principal)
CPT/HCPCS: 88108; 88305; 88313

== ENCOUNTER → 2020-07-20 | Outpatient (CLI) | payer OTHER, SELFPAY ==
[2020-07-20 11:25] VITALS: BMI 29.9
[2020-07-26 13:03] LABS: HPV APTIMA, High Risk Negative (Negative)
== END | disposition home or self-care (01) ==
PROVIDERS: Referring Provider Obstetrics & Gynecology; Visit Provider Obstetrics & Gynecology
DX: Z12.4 Encounter for screening for malignant neoplasm of cervix (principal)
CPT/HCPCS: 87624; 88175; G0145

== ENCOUNTER → 2020-10-04 14:02 | Outpatient (CLI) | payer OTHER, SELFPAY ==
[2020-10-04 13:24] VITALS: BMI 30.5
[2020-10-04 14:15] LABS: Absolute Lymphocyte Count 1.57 X10^3/uL (0.83-4.51); Absolute Neutrophil Count 6.1 X10^3/uL (2.0-7.7); Basophil# 0.02 X10^3/uL; Basophil% 0.2 % (0-1); Eosinophil# 0.08 X10^3/uL; Eosinophils% 0.9 % (0-5); Hematocrit 38.9 % (37-47); Hemoglobin 13.1 g/dL (12.0-15.0); Lymphocyte # 1.57 X10^3/ul (0.83-4.51); Lymphocyte % 18.4 % (19-41); Mean Corp Hgb Conc 33.7 g/dL (32-36); Mean Corpuscular Hgb 29.9 pg (27.0-32.0); Mean Corpuscular Volume 88.8 fL (81-99); Monocyte# 0.74 X10^3/uL; Monocyte% 8.7 % (0-10); NRBC Flagged by Analyzer 0 % (0-5); Neutrophil # 6.12 X10^3/uL (2.7-7.7); Neutrophil % 71.6 % (47-70); Platelet Count 299 K/mm3 (150-450); RBC Distribution Width CV 12.4 % (11.6-14.6); RBC Distribution Width SD 40.3 fl (35.1-43.9); Red Blood Count 4.38 M/mm3 (4.2-5.4); White Blood Count 8.6 K/mm3 (4.4-11.0)
[2020-10-04 15:38] LABS: HIV - WCH Non-Reactive (Nonreactive); Hepatitis B Surface Antigen Non-Reactive (Nonreactive); Hepatitis C Antibody Non-Reactive (Nonreactive); Rubella IgG Reactive (Nonreactive); Syphilis Antibodies Non-reactive
[2020-10-04 18:41] LABS: Amphetamine Urine VISTA NEGATIVE (<1000 ng/mL); Barbiturate Urine VISTA NEGATIVE (< 200 ng/mL); Benzodiazepine Urine VISTA NEGATIVE (< 200 ng/mL); Cocaine Urine VISTA NEGATIVE (< 300 ng/mL); Ecstacy Urine VISTA NEGATIVE (< 500 ng/mL); Methadone Urine VISTA NEGATIVE (< 300 ng/mL); PCP Urine VISTA NEGATIVE (< 25 ng/mL); THC Urine VISTA NEGATIVE (< 50 ng/mL); Vista UDS pH Range 6
[2020-10-08 03:07] LABS: Chlamydia By Nucleic Acid AMP Negative (Negative)
[2020-10-08 08:22] LABS: Gonococcus By Nucleic Acid AMP Negative (Negative)
== END ==
PROVIDERS: Referring Provider Obstetrics & Gynecology; Visit Provider Obstetrics & Gynecology
DX: Z34.90 Encounter for supervision of normal pregnancy, unspecified, unspecified trimester (principal); Z11.3 Encounter for screening for infections with a predominantly sexual mode of transmission
CPT/HCPCS: 36415; 80307; 85025; 86703; 86762; 86780; 86803; 86850; 86900; 86901; 87077; 87086; 87088; 87186; 87340; 87491; 87591

== ENCOUNTER → 2020-12-17 | Outpatient (CLI) | payer OTHER, SELFPAY ==
[2020-12-17 13:59] VITALS: BMI 31.6
== END | disposition home or self-care (01) ==
LOC: LABSPEC 16:38
PROVIDERS: Referring Provider Obstetrics & Gynecology; Visit Provider Obstetrics & Gynecology
DX: N89.8 Other specified noninflammatory disorders of vagina (principal); R30.0 Dysuria
CPT/HCPCS: 87070; 87077; 87086; 87088; 87186; 87205

== ENCOUNTER → 2021-01-24 10:17 | Outpatient (CLI) | payer OTHER, SELFPAY ==
[2021-01-24 10:42] LABS: Absolute Lymphocyte Count 1.15 X10^3/uL (0.83-4.51); Absolute Neutrophil Count 4.9 X10^3/uL (2.0-7.7); Basophil# 0.02 X10^3/uL; Basophil% 0.3 % (0-1); Eosinophil# 0.05 X10^3/uL; Eosinophils% 0.7 % (0-5); Hematocrit 38.5 % (37-47); Hemoglobin 12.6 g/dL (12.0-15.0); Lymphocyte # 1.15 X10^3/ul (0.83-4.51); Lymphocyte % 17.1 % (19-41); Mean Corp Hgb Conc 32.7 g/dL (32-36); Mean Corpuscular Hgb 30.5 pg (27.0-32.0); Mean Corpuscular Volume 93.2 fL (81-99); Mean Platelet Vol. 9.2 fl (6.2-12.0); Monocyte# 0.59 X10^3/uL; Monocyte% 8.8 % (0-10); NRBC Flagged by Analyzer 0 % (0-5); Neutrophil # 4.88 X10^3/uL (2.7-7.7); Neutrophil % 72.7 % (47-70); Platelet Count 242 K/mm3 (150-450); RBC Distribution Width CV 13.2 % (11.6-14.6); Red Blood Count 4.13 M/mm3 (4.2-5.4); White Blood Count 6.7 K/mm3 (4.4-11.0)
[2021-01-24 11:00] LABS: Glucose Challenge Gest 1H 50g 91 mg/dL (70-140)
== END ==
PROVIDERS: Referring Provider Obstetrics & Gynecology; Visit Provider Obstetrics & Gynecology
DX: O09.90 Supervision of high risk pregnancy, unspecified, unspecified trimester (principal); Z13.1 Encounter for screening for diabetes mellitus; Z3A.00 Weeks of gestation of pregnancy not specified
CPT/HCPCS: 36415; 82950; 85025

== ENCOUNTER → 2021-03-07 11:52 | Outpatient (CLI) | payer OTHER, SELFPAY ==
--- NOTE | 2021-03-07 11:54 | US_ITS ---
STUDY: SECOND AND THIRD TRIMESTER OBSTETRICAL ULTRASOUND - LIMITED REASON FOR EXAM: Female, 35 years old growth @ 32 weeks - covid exposure LMP: 07/20/2020. PRIOR ULTRASOUND: None. TECHNIQUE: Transabdominal TECHNICAL QUALITY: Adequate. FINDINGS: There is a single intrauterine fetus. The fetus is in a cephalic presentation. There is demonstrated cardiac activity with a heart rate of 144 bpm. There is a normal amniotic fluid volume. The largest amniotic fluid pocket measures 5.7 cm. The amniotic fluid index (LORI) is 17.6 cm. The placenta is fundal in location. There are Grade 0 placental changes. The cervix measures 3.7 cm in length. BIOMETRY: BPD: 8.06 cm: 32 weeks, 2 days HC: 30 cm: 33 weeks, 1 days AC: 29.67 cm: 33 weeks, 4 days FL: 6.33 cm: 32 weeks, 5 days Age by LMP: 32 weeks, 6 days. NENO by LMP: 04/26/2021. age by current US: 33 weeks, 0 days. NENO by current US: 04/25/2021. Estimated weight: 2159 grams, +/- 324 grams, 54 percentile. US/OB Limited With Biometrics IMPRESSION: Single live intrauterine gestation with a mean gestational age of 33 weeks. Electronically Signed: Faraz Montiel MD at 12:51 EDT , Service support ,
== END ==
PROVIDERS: PCP Family Medicine; Referring Provider Obstetrics & Gynecology; Visit Provider Obstetrics & Gynecology
DX: O98.513 Other viral diseases complicating pregnancy, third trimester (principal); U07.1 COVID-19; Z3A.32 32 weeks gestation of pregnancy
CPT/HCPCS: 76816

== ENCOUNTER → 2021-04-04 11:54 | Outpatient (CLI) | payer OTHER, SELFPAY ==
--- NOTE | 2021-04-04 11:56 | US_ITS ---
HISTORY: growth @ 36 weeks - covid exposure. TECHNIQUE: Transabdominal pelvic ultrasound was performed. # of images incl. paperwork: 57. COMPARISON: 03/07/2021. FINDINGS: INTRAUTERINE GESTATION(s): Single. PRESENTATION: Cephalic. PLACENTA: Posterior and fundal, grade 1. No placenta previa. CERVIX: Not well-visualized. AMNIOTIC FLUID INDEX (LORI): 21.8 cm. HEART MOTION: 124 bpm. BIPARIETAL DIAMETER: 9 cm, 36 weeks 1 day. HEAD CIRCUMFERENCE: 32.4 cm, 36 weeks 4 days. ABDOMINAL CIRCUMFERENCE: 34.8 cm, 38 weeks 4 days. FEMUR LENGTH: 6.9 cm, 35 weeks 1 day. ESTIMATED WEIGHT: 3233 g, corresponding to 72nd percentile. ESTIMATED GESTATIONAL AGE: 36 weeks 6 days. ESTIMATED DUE DATE (NENO): 04/26/2021. ANATOMIC SURVEY: not assessed. US/OB Limited With Biometrics IMPRESSION: Single living intrauterine with an estimated gestational age of 36 weeks 6 days. Amniotic fluid index 21.8 cm. Recommend follow-up. at 1015 Reported and signed by: Berenice Matamoros MD Electronically Signed: Berenice Matamoros MD at 10:14 EST Tel , Service support ,
== END ==
PROVIDERS: PCP Family Medicine; Referring Provider Obstetrics & Gynecology; Visit Provider Obstetrics & Gynecology
DX: O98.519 Other viral diseases complicating pregnancy, unspecified trimester (principal); U07.1 COVID-19; Z3A.00 Weeks of gestation of pregnancy not specified
CPT/HCPCS: 76816

== ENCOUNTER → 2021-04-14 | Outpatient (CLI) | payer OTHER, SELFPAY | END | disposition home or self-care (01) | LOC: LABSPEC 12:39 | PROVIDERS: PCP Family Medicine; Visit Provider Obstetrics & Gynecology | DX: Z34.93 Encounter for supervision of normal pregnancy, unspecified, third trimester (principal) | CPT/HCPCS: 87635; U0005; U0003 ==

== ENCOUNTER 2021-04-21 05:00 | Inpatient (IN) | payer OTHER, SELFPAY ==
[2021-04-21] VITALS (18 sets, daily range): BP systolic 106–135; BP diastolic 51–80; PULSE 68–101; RESP 13–18; TEMP 36.1–37; O2SAT 96–99; BMI 35.7
[2021-04-21] MEDS: Lactated Ringers 1,000 ML 999 ML IV (05:30)
[2021-04-21] MEDS: Acetaminophen 500 MG Tablet 1000 MG PO ×4 (05:56→23:58)
[2021-04-21 06:06] LABS: Absolute Lymphocyte Count 1.51 X10^3/uL (0.83-4.51); Basophil# 0.02 X10^3/uL; Basophil% 0.3 % (0-1); Eosinophil# 0.08 X10^3/uL; Eosinophils% 1.1 % (0-5); Hematocrit 36.6 % (37-47); Hemoglobin 12.5 g/dL (12.0-15.0); Lymphocyte # 1.51 X10^3/ul (0.83-4.51); Lymphocyte % 21.2 % (19-41); Mean Corp Hgb Conc 34.2 g/dL (32-36); Mean Corpuscular Hgb 30.2 pg (27.0-32.0); Mean Corpuscular Volume 88.4 fL (81-99); Mean Platelet Vol. 9.8 fl (6.2-12.0); NRBC Flagged by Analyzer 0 % (0-5); Neutrophil % 70.1 % (47-70); Platelet Count 220 K/mm3 (150-450); RBC Distribution Width CV 13.2 % (11.6-14.6); RBC Distribution Width SD 43.3 fl (35.1-43.9); Red Blood Count 4.14 M/mm3 (4.2-5.4); White Blood Count 7.1 K/mm3 (4.4-11.0)
[2021-04-21] MEDS: Lactated Ringers 1,000 ML 150 ML IV (06:40)
[2021-04-21] MEDS: Sodium Citrate/Citric Acid 30 ML UDC PO (07:20)
[2021-04-21] MEDS: Cefazolin 2 GM in 0.9% Normal Saline 100 ML IV (07:42)
--- NOTE | 2021-04-21 07:44 | HP.PCM_ITS ---
History and Physical Date of Admission: 04/21/21 Vital Signs 04/14/21 10:50 Height 5 ft 7 in Weight: 226 lb BMI 35.4 BP 110/82 H Intake Visit Reasons: 38 WK OB Chief Complaint: est ob Raveler Required: No Is patient in pain?: No Allergies No Known Allergies Allergy (Verified 04/14/21 10:51) Medications vitamin #56-iron 35 mg and 5 mg-folic acid 1 mg-dha capsule 1 cap PO DAILY 10/04/20 [History Confirmed 04/14/21] Last Menstral Period: 07/30/20 Zika: Zika virus screening: Negative : No PFSH PFSH Medical History Breast abscess Multiple thyroid nodules Surgical History S/P section Status post incision and drainage Family History Grandmother Breast cancer Grandfather Cancer prostate and lung Grandmother Thyroid disorder Father Crohn's disease Mother Colitis Social History adopted: No household members: spouse and children current occupational status: unemployed current occupation: [employer] Smoking Status: Never smoker alcohol intake: never substance use type: does not use caffeine: Yes what type of physical activity do you participate in: walking frequency: 3-4 times per week seatbelt use: always do you feel safe at home: Yes additional social history: Dennis- 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 Date Name GA/Weeks Outcome Route Bth Weight Gen Labor Lgth Anesthesia Del Locatn Provider FOB Unknown 2017 Nando 39 live - full term 8lbs 8oz Male 24 spinal [facility] Dr. Kevin Nogueira Delivery Date: stalled at 9cm Becky Joya HPI 38 WK OB Details: WILL MCCLAIN is a 35 year old who presents for routine OB visit. OB Visit NENO Calculator Estimated Delivery Date Method Current WG Current Estimate 04/26/21 Ultrasound #1 38w 2d Other Estimates 05/06/21 LMP (Certain) 36w 6d Expected Delivery Route/Plan RLTCS with SM Specific Issue/Plans covid status: counseled regarding risk of covid in vs vaccination and declined vaccination flu vaccine: declined tdap vaccine: given rhogam: na LARC form signed: declined. movement and labor precautions reviewed. Problem list reviewed and updated with the most current plan of care details and appropriate orders placed. Relevant counseling for the gestational age provided. Continue routine care and follow up unless otherwise noted in visit notes/problem list details Initial Weight: 195 lb Date EGA Weight BP Urine Prot Glucose FHR FuHt Pres Dilation Effaced St Visit Note 10/04/20 10w 6d 195 lb (+0 oz) 122/78 175 SM- CRL cons with LMP SM- CRL 3.6 cm not cons with LMP 11/01/20 14w 6d 197 lb 4 oz (+2 lb 4 oz) 136/74 Negative Negative 160 MH-No VB, LOF. Nausea improved. MFM US 12/02. PRR 11/29/20 18w 6d 202 lb (+7 lb) 132/76 Negative Negative 164 MH-No Vb, LOF. Has felt mild flutters. Has noted 5 days ago halo vision off to right side and yesterday sharp shooting pain in right orthodox several times. Denies other sx Consult SM:will see PCP 12/17/20 21w 3d 204 lb (+9 lb) 146/90 Negative Negative 155 0 GP - work in for urinary frequency and burning. Reports constant burning. Urine dip negative. Vaginal exam nl - vaginal and urine cultures sent. 01/03/21 23w 6d 204 lb (+9 lb) 121/70 Negative Negative 145 24 SM- no vb lof goo dfm no reuglar ctx considering covid vaccine. 01/24/21 26w 6d 210 lb (+15 lb) 126/62 Negative Negative 140 27 SM- n ovb lof good fm no regular ctx 02/11/21 29w 3d 214 lb 2 oz (+19 lb 2 oz) Negative Negative 02/21/21 30w 6d 217 lb (+22 lb) 122/84 140 SM- no vb cramping no regular ctx 03/07/21 32w 6d 219 lb (+24 lb) 120/72 140 33 SM- no vb lof good fm no regular ctx 03/21/21 34w 6d 222 lb (+27 lb) 130/66 Negative Negative 155 35 SM- no vb lof good fm no reuglar ctx 03/31/21 36w 2d 225 lb (+30 lb) 110/72 Negative Negative 140 36 Sm- no vb lof good fm no regular ctx 04/04/21 36w 6d 225 lb (+30 lb) 132/74 Negative Negative 140 37 SM- no vb lof good fm no regular ctx 04/14/21 38w 2d 226 lb (+31 lb) 110/82 Negative Negative 140 38 SM- no vb lof good fm no reuglar ctx ACOG First Trimester First Trimester: Second Trimester Second Trimester: Signs and Symptoms of Labor, Selecting a care provider, Reproductive Life Planning & Contreception, Care Planning, Tobacco Cessation, Depression/Anxiety and Intimate Partner Violence Third Trimester Third Trimester: Pain Management Plans, Labor support person(s), Immediate Larc, Movement Monitoring and Infant Feeding Yes ; Discussed Trial of Labor after Counseling and Discussed Circumcision preference Diagnostics Diagnostics Diagnostics: Glucose 1 Hr 50 gm 91 mg/dL (70-140) Hgb 12.6 g/dL (12.0-15.0) Hct 38.5 % (37-47) Details: HIV: Urine Culture: Sequential Screen: NIPT Screen: ROS Const Reports system reviewed and no additional complaints, except as documented Card Reports system reviewed and no additional complaints, except as documented Resp Reports system reviewed and no additional complaints, except as documented GI Reports system reviewed and no additional complaints, except as documented and Reports nausea Reports system reviewed and no additional complaints, except as documented Musc Reports system reviewed and no additional complaints, except as documented Exam Const General: cooperative, healthy appearing, comfortable and anxious [facility] Head: normal to inspection Nose: external nose normal Face and sinus: normal facial exam Neck Neck: normal visual inspection, full ROM and no lymphadenopathy Thyroid: thyroid normal Chest Chest palpation & inspection: normal inspection of the chest Resp Effort & Inspection: normal respiratory effort GI Inspection: normal to inspection Palpation: soft and other (gravid uterus) Other: infant vertex and appropriate size for gestational age Other: Cervical Exam: Extrem General: pedal edema Results POC Urinalysis 2 Dip (Clinic) Office Urine Glucose Negative Last Edit by Becky Washington on 04/14/21 10:57 Office Urine Protein Negative Last Edit by Becky Washington on 04/14/21 10:57 Coding Level of Care Code OB Routine Diagnoses COVID-19 affecting , antepartum O98.519; U07.1 Positive GBS test B95.1 Family history of disorder due to sex chromosome abnormality Z82.79 Supervision of high risk , antepartum O09.90 Z3A.38 Weeks of gestation: 38 weeks History of delivery Z98.891 Assessment and Plan Assessment and Plan (1) COVID-19 affecting , antepartum: Status: Acute Comment: Patient and had same symptoms but he tested positive and she tested negative. Discussed risks vs. benefits of ASA and growth US. Will treat as presumptive COVID; NL growth 03/08, nl growth 04/05 (2) Positive GBS test: Status: Acute Comment: PCN in labor. gbs pos in urine. (3) Family history of disorder due to sex chromosome abnormality: Status: Acute Comment: FOB has aunt and uncle with Mast syndrome (4) Supervision of high risk , antepartum: Status: Acute Comment: PRR NENO 05/06/21 boy Harsha PC: Terry Spouse:Denins (5) : Status: Acute Qualifiers: Weeks of gestation: 38 weeks Qualified Code(s): Z3A.38 - 38 weeks gestation of Comment: Declines carrier and NIPT screen, afp declined. nl anatomy (6) History of delivery: Status: Acute Comment: 9cm FTP; plan RLTCS with , scheduled 04/21 @ 12 Plan Details Other Orders: Orders: POC Urinalysis 2 Dip (Clinic) Today UPDATE- I have seen the patient and performed any clinically relevant updates to the history and physical exam. Raisa Choudhury MD
--- NOTE | 2021-04-21 07:44 | EX.PCM.OBRPT ---
Assessment & Plan (1) delivery delivered: COMMENT: SM RLTCS [facility] 40 (2) History of delivery: COMMENT: 9cm FTP; plan RLTCS with , scheduled 04/21 @ (3) : QUALIFIERS: Weeks of gestation: 38 weeks Qualified Code(s): Z3A.38 - 38 weeks gestation of COMMENT: Declines carrier and NIPT screen, afp declined. nl anatomy (4) Supervision of high risk , antepartum: COMMENT: PRR NENO 05/06/21 [facility]: Terry Spouse:Dennis (5) Family history of disorder due to sex chromosome abnormality: COMMENT: FOB has aunt and uncle with Mast syndrome (6) Positive GBS test: COMMENT: PCN in labor. gbs pos in urine. (7) COVID-19 affecting , antepartum: COMMENT: Patient and had same symptoms but he tested positive and she tested negative. Discussed risks vs. benefits of ASA and growth US. Will treat as presumptive COVID; NL growth 03/08, nl growth 04/05 (8) Lab test negative for COVID-19 virus: COMMENT: 04/14/21 Maternal Data Information NENO Calculator Estimated Delivery Date Method Current WG Current Estimate 04/26/21 Ultrasound #1 39w 2d Other Estimates 05/06/21 LMP (Certain) 37w 6d Final NENO Source: LMP Details Operative Information Pre-Operative Diagnosis: Previous Post-Operative Diagnosis: same Indications for : Repeat Elective Classification: Scheduled Type of Anesthesia: Spinal Special Medications: none Antibiotic Given: Ancef 2 grams IV x1 Drain: [place] to straight drain Estimated Blood Loss: 600 Fluids Replaced: crystalloid Findings Description of Procedure: Spinal anesthesia was placed without difficulty. [place] catheter was placed. The patient was placed in the dorsal supine position with leftward tilt. Patient was prepped and draped in the normal sterile fashion. Pfannenstiel skin incision was made with the scalpel and carried through to the underlying layer of fascia with the scalpel. Fascia was nicked in the midline and the incision extended laterally. The rectus bellies were dissected off superiorly and inferiorly with out complication both sharply and bluntly. The peritoneum was entered digitally. The incision was stretched and a low transverse uterine incision was made with the scalpel. The infant's head was delivered atraumatically followed by the anterior and posterior shoulders without complication the rest of the delivered. The cord was clamped and cut and the was handed off to awaiting nurse. The placenta was delivered spontaneously immediately following and was noted to be intact and have a three-vessel cord. The uterus was exteriorized cleared of all clots and debris, and the incision was closed in a double layer closure using #1 Monocryl. The ovaries and fallopian tubes were noted to be within normal limits. The uterus was returned to the maternal abdomen and gutters were cleared of all clots and debris. The peritoneum was closed with 3-0 Monocryl in a running fashion. Gloves were changed prior to fascial closure. Fascia was closed with 0 PDS in a running fashion. Subcutaneous tissue was copiously irrigated and the skin was closed with 3-0 Monocryl in a subcuticular fashion. Mepilex dressing was applied without complication. Patient was taken to recovery in stable condition. It was discussed with the patient that based on the clinical information obtained during this encounter, combined with her history, at this time I would recommend cesareans for future deliveries if further pregnancies are desired. Amniotic Membrane Rupture Type: Artificial Amniotic Fluid Description: Clear Placenta Disposition: [facility] Cord Vessel Description: 3 Vessels Cord Entanglement: None Delayed Cord Clamping: Yes Complications Risks of Surgery Discussed w/Patient: Bleeding, Infection, Need for Future C-Sections and Injury to surrounding structure(s) including bowel and bladder Vaginal Delivery Complication Complications: None Admit VTE Documentation VTE Present on Admission: No VTE Mechan Device Prophylaxis: SCD's Procedures Urinary/Genital [id number]: [id number] Delivery [facility]
--- NOTE | 2021-04-21 07:45 | PCM.DC ---
Discharge Instructions Diet Discharge Diet: No restrictions Activity Discharge Activity: May Not Drive (for 2 weeks or while taking narcotic pain medications.), May Shower and May Take a Tub Bath (in 7 days) May shower in (days): 0 May resume sexual activity in: 4-6 weeks Weight Bearing Status: Full weight bearing Lifting Restrictions: 20 pounds Dressing / Incision Call your doctor if your incision/area has: Continuous Slow Oozing, Sudden Increased Bleeding, Increased Pain/ Swelling, Increased Redness and Foul Smelling Discharge Call your doctor if you observe: Fever of 101 or Higher and Using more than 1 pad per hour (for 2 hours) Suture Line Care: Avoid Pulling/Pushing and Avoid Pinching/Bending Cleanse incision/area with: Soap & Water and Keep Dressing Clean & Dry Follow Up Care Please Follow Up With: Raisa Choudhury MD When: Call [phone] to make an appointment for an incision check in 1-2 weeks. Test Results: Test results from this visit will be discussed in further detail at your follow-up appointment, if applicable. Discharge Plan Admission Admit Date/Time: 04/21/21 05:00 Primary Reason for Your Visit: Attending Provider: Raisa Choudhury Primary Care Provider: Aletha Chambers Discharge Orders/Prescriptions Prescriptions: New naproxen 250 MG tablet 250 - 500 mg PO Q8H PRN PRN (Reason: MILD PAIN) Qty: 30 RF: 1 oxycodone-acetaminophen [Percocet] 5-325 mg tablet 1 tab PO Q6H PRN (Reason: pain) 7 Days Qty: 20 RF: 0 Continued PNV #[id number] acid-dha 35 mg iron-5 mg iron-1 mg capsule 1 cap PO DAILY RF: 0 Referrals / Follow Up: Aletha Chambers DO [Primary Care Provider] -
[2021-04-21] MEDS: Oxytocin 30 units/NS 500 ml 30 UNITS/500 ML IV.SOLN 167 UNITS IV (08:45)
[2021-04-21] MEDS: Ketorolac 30 MG/ML Syringe IV ×3 (09:43→22:13)
[2021-04-21] MEDS: Ondansetron 4 MG/2 ML Vial IV (10:18)
[2021-04-21] MEDS: Lactated Ringers 1,000 ML 100 ML IV (11:52)
--- NOTE | 2021-04-21 12:59 | NURSING ---
This director industrial nursing reviewed the documentation completed by Charli Ching [facility] student nurse.
[2021-04-21] MEDS: 0.9% Saline Lock 10 ML Syringe IV ×2 (17:36→22:13)
[2021-04-21] MEDS: Enoxaparin 40 MG/0.4 ML Syringe SC (22:14)
[2021-04-22] VITALS: BP 111/64; PULSE 75; RESP 16; TEMP 36.4; O2SAT 95
[2021-04-22] MEDS: Ketorolac 30 MG/ML Syringe IV (04:57)
[2021-04-22] MEDS: 0.9% Saline Lock 10 ML Syringe IV (04:58)
[2021-04-22 05:02] VITALS: BP 115/64; PULSE 65; RESP 16; TEMP 36.4; O2SAT 95
[2021-04-22] MEDS: Acetaminophen 500 MG Tablet 1000 MG PO ×2 (06:11→12:26)
[2021-04-22 06:25] LABS: Hematocrit 34.7 % (37-47); Hemoglobin 11.2 g/dL (12.0-15.0); Mean Corp Hgb Conc 32.3 g/dL (32-36); Mean Corpuscular Hgb 29.5 pg (27.0-32.0); Mean Corpuscular Volume 91.3 fL (81-99); Mean Platelet Vol. 9.5 fl (6.2-12.0); Platelet Count 182 K/mm3 (150-450); RBC Distribution Width CV 13.2 % (11.6-14.6); RBC Distribution Width SD 44.7 fl (35.1-43.9); White Blood Count 6.8 K/mm3 (4.4-11.0)
[2021-04-22 08:00] VITALS: BP 124/58; PULSE 69; RESP 18; TEMP 36.4
[2021-04-22] MEDS: Senna/Docusate Sodium 1 Tablet PO (09:49)
[2021-04-22] MEDS: Prenatal Vits Tablet 1 TABLET PO (09:50)
[2021-04-22] MEDS: Enoxaparin 40 MG/0.4 ML Syringe SC (09:51)
[2021-04-22] MEDS: Naproxen 500 MG Tablet PO (12:26)
[2021-04-22 12:57] VITALS: BP 121/60; PULSE 64; RESP 18; TEMP 36; O2SAT 97
[2021-04-22 13:43] VITALS: TEMP 36.6
--- NOTE | 2021-04-22 13:51 | PCM.PN.OB ---
Subjective Subjective Patient doing well without complaints. Tolerating PO. Ambulating and voiding without difficulty. feeding well. Denies chest pain, shortness of breath, calf pain/swelling, fevers, chills, lightheadedness. Objective Data Objective Data Vital Signs: Vital Signs Temp Pulse Resp BP Pulse Ox 97.8 F 64 18 121/60 H 97 04/22/21 13:43 04/22/21 12:57 04/22/21 12:57 04/22/21 12:57 04/22/21 12:57 Oxygen Delivery Method Room Air Weight: 228 lb 2.855 oz Body Mass Index (BMI) 35.7 Intake & Output: Intake and Output for Last 24 Hours 04/20/21 04/21/21 04/22/21 23:59 23:59 23:59 Intake Total 3365 / 3365 Output Total 1550 / 1550 Balance 1815 / 1815 Lab / Micro Data Result Diagrams: 04/22/21 06:15 Labs: Laboratory Results - last 24 hr 04/22/21 06:15: WBC 6.8, RBC 3.80 L, Hgb 11.2 L, Hct 34.7 L, MCV 91.3, MCH 29.5, MCHC 32.3 D, RDW Std Deviation 44.7 H, RDW Coeff of Teja 13.2, Plt Count 182, MPV 9.5 ROS Constitutional Constitutional: Reports systems reviewed and no addt'l complaints, except as documented Cardiovascular Cardiovascular: Reports systems reviewed and no addt'l complaints, except as documented Respiratory/Chest Respiratory/Chest: Reports systems reviewed and no addt'l complaints, except as documented Gastrointestinal Gastrointestinal: Reports systems reviewed and no addt'l complaints, except as documented Physical Exam Const alert, oriented x3 and no apparent distress HEENT Head and Scalp: atraumatic Resp normal respiratory effort GI soft to palpation and non-tender Bimanual Exam - Vag & Uterus: uterus non-tender Uterus Palpation: uterus fundus firm (below Umbilicus) Assessment & Plan (1) delivery delivered: COMMENT: LINO [facility]AMA[facility] 40 PLAN: s/p LTCS PPD # 1 1. routine post care 2. breast feeding- support given 3. rh positive 4. rubella immune
--- NOTE | 2021-04-26 18:45 | NURSING ---
Follow up phone call attempted. No answer. Left a voicemail for patient
== END 2021-04-22 15:00 | disposition home or self-care (01) | DRG 788 ==
PROVIDERS: Admitting Provider Obstetrics & Gynecology; PCP Family Medicine; Visit Provider Obstetrics & Gynecology
PROC: 10D00Z1 Extraction of Products of Conception, Low, Open Approach (ICD-10-PCS; CPT 59514; principal; 2021-04-21 07:15)
DX: O34.211 Maternal care for low transverse scar from previous cesarean delivery (principal); N85.8 Other specified noninflammatory disorders of uterus; O99.824 Streptococcus B carrier state complicating childbirth; Z3A.38 38 weeks gestation of pregnancy; Z37.0 Single live birth
CPT/HCPCS: 85025; 85027; 86850; 86900; 86901; 99218; J7120; A4216; G0378; J2405

== ENCOUNTER 2021-05-30 14:29 | Outpatient (CLI) | payer OTHER, SELFPAY ==
[2021-05-30 15:13] LABS: T4 Free Direct 1.17 ng/dL (0.76-1.46); Thyroid Stim Hormone (TSH) 0.43 uIU/mL (0.358-3.74)
== END 2021-05-30 23:59 | disposition short-term general hospital (02) ==
LOC: PAVLAB 14:30
PROVIDERS: PCP Family Medicine; Referring Provider Obstetrics & Gynecology; Visit Provider Obstetrics & Gynecology
DX: E01.0 Iodine-deficiency related diffuse (endemic) goiter (principal)
CPT/HCPCS: 36415; 84439; 84443

== ENCOUNTER 2021-06-13 13:28 | Outpatient (CLI) | payer OTHER, SELFPAY ==
--- NOTE | 2021-06-13 13:33 | US_ITS ---
STUDY: THYROID ULTRASOUND REASON FOR EXAM: Female, 35 years old. Thyromegaly TECHNIQUE: Ultrasound evaluation of the thyroid was performed with real-time and static morataya-scale imaging. COMPARISON: Comparison is made with prior study dated 01/22/2020. FINDINGS: RIGHT LOBE: The right lobe of the thyroid gland measures 4.9 cm x 2.4 cm x 1.9 cm. There is a homogeneous echotexture. Multiple cystic nodules are seen. The largest measures 1.3 cm x 1.1 cm x 0.5 cm. There is also evidence of a hypoechoic solid nodule measuring 7 mm x 5 mm x 4 mm. LEFT LOBE: The left lobe of the thyroid gland measures 5.4 cm x 2.1 cm x 1.7 cm. There is a homogeneous echotexture. Once again, multiple complex cystic nodules are seen. The largest measures 1.5 cm x 1.57 x 1.2 cm. This is in the lower pole. ISTHMUS: The isthmus measures 4 mm. The regional lymph nodes are normal. US/Thyroid IMPRESSION: Multiple bilateral cystic and complex cystic nodules in both lobes as described. The largest on the right side measures 1.3 cm x 1.1 cm x 0.5 cm. The largest in the left lobe measures 1.5 size by 1.5 size by 1.2 cm. This is unchanged. Electronically Signed: Faraz Montiel MD at 15:40 EST ,
== END 2021-06-13 23:59 | disposition short-term general hospital (02) ==
PROVIDERS: PCP Family Medicine; Referring Provider Obstetrics & Gynecology; Visit Provider Obstetrics & Gynecology
DX: E01.0 Iodine-deficiency related diffuse (endemic) goiter (principal)
CPT/HCPCS: 76536

== ENCOUNTER → 2022-07-10 | Outpatient (CLI) | payer OTHER, SELFPAY ==
[2022-07-10 13:23] LABS: T4 Free Direct 1.16 ng/dL (0.76-1.46); Thyroid Stim Hormone (TSH) 0.72 uIU/mL (0.358-3.74)
[2022-07-11 14:42] LABS: Thyroid Peroxidase AB 12 IU/mL (0-34)
== END | disposition home or self-care (01) ==
LOC: PAVLAB 12:35
PROVIDERS: PCP Family Medicine; Referring Provider Obstetrics & Gynecology; Visit Provider Obstetrics & Gynecology
DX: E01.0 Iodine-deficiency related diffuse (endemic) goiter (principal)
CPT/HCPCS: 36415; 84439; 84443; 86376

== ENCOUNTER → 2022-07-12 | Outpatient (CLI) | payer OTHER, SELFPAY ==
--- NOTE | 2022-07-12 15:24 | US_ITS ---
STUDY: THYROID ULTRASOUND REASON FOR EXAM: Female, 36 years old. thyromegaly f/u nodule TECHNIQUE: Ultrasound evaluation of the thyroid was performed with real-time and static morataya-scale imaging. COMPARISON: 06/13/2021 thyroid ultrasound FINDINGS: RIGHT LOBE: The right lobe of the thyroid gland measures 5.6 x 2.2 x 1.5 cm. There is a heterogeneous echotexture. Remaining mostly multi focal cystic lesions within the right thyroid. However within the inferior aspect of the right thyroid there is a visualized cystic structure measuring approximately 1.6 x 0.8 x 1.4 cm, measured at the radiologist''s workstation with a similar size to the prior study, having a cystic appearance with a focus of internal solid echogenicity. On prior study measured at the radiologist workstation this nodule measured 1.2 x 0.5 x 1.0 cm. Otherwise there are multiple small cystic structures suggesting colloid cysts that measure 2 to 5 mm. There is a hypoechoic nodule measuring 0.9 x 0.3 cm stable since prior study allowing for differences in technique. LEFT LOBE: The left lobe of the thyroid gland measures 5.5 x 1.8 x 1.4 cm. There is a heterogeneous echotexture. Within the inferior aspect of the left thyroid lobe there is a suggestion of a hypoechoic nodule adjacent to a cystic nodule. The hypoechoic nodule measures 1.0 x 0.4 cm and the more solid-appearing nodule measures 0.8 and 0.5 cm. This appears more contracted when compared to the prior study. The cystic component is less seen on prior study. ISTHMUS: The isthmus measures 3 mm . The regional lymph nodes are normal. US/Thyroid IMPRESSION: Allowing for differences in technique there is a fairly similar size to the overall thyroid gland. However, This is slightly greater size of the right inferior thyroid nodule which has the appearance of a cyst with a internal solid nodule. Could consider further evaluation on a short-term basis or consider biopsy. There is a lesser cystic appearance of the lower pole nodule when compared to prior study. Now there is a hypoechoic any solid-appearing adjacent nodule. Mild thyromegaly. The thyroid demonstrates multiple too numerous to count small colloid cysts throughout. Electronically Signed: Tali Mccormack MD at 2:26 EST ,
== END | disposition home or self-care (01) ==
PROVIDERS: PCP Family Medicine; Referring Provider Obstetrics & Gynecology; Visit Provider Obstetrics & Gynecology
DX: E01.0 Iodine-deficiency related diffuse (endemic) goiter (principal)
CPT/HCPCS: 76536